=== PATIENT | male | born 1975 | race Caucasian/White ===

== ENCOUNTER → 2017-10-19 | Outpatient (CLI) | payer OTHER ==
[~2017-10-19] MED LIST: ATR80PT PO; METF-410 PO; PRED20TA6 PO; VALA100062 PO
== END ==
LOC: AUD 14:00
PROVIDERS: ATTEND Otolaryngology
DX: H91.23 Sudden idiopathic hearing loss, bilateral (principal)
CPT/HCPCS: 92557; 92570

== ENCOUNTER → 2017-10-26 | Outpatient (CLI) | payer OTHER | LOC: AUD 15:03 | PROVIDERS: ATTEND Otolaryngology | DX: H91.23 Sudden idiopathic hearing loss, bilateral (principal) | CPT/HCPCS: 92552 ==